=== PATIENT | male | born 1995 | race Caucasian/White ===

== ENCOUNTER 2022-01-04 14:53 | Emergency (ER) | payer MEDICAID, OTHER ==
[~2022-01-04] VITALS: Ht 170.2 cm; Wt 100.0 kg
[2022-01-04 15:09] VITALS: BP 142/85
[2022-01-04] MEDS ORDERED: BO1 TP (17:48)
== END 2022-01-04 17:54 | disposition home or self-care (01) ==
LOC: ER 14:53
DX: S31.21XA Laceration without foreign body of penis, initial encounter (principal); X58.XXXA Exposure to other specified factors, initial encounter; Y93.89 Activity, other specified; Y92.89 Other specified places as the place of occurrence of the external cause; Y99.8 Other external cause status
CPT/HCPCS: 99282

== ENCOUNTER 2023-12-11 10:19 | Emergency (ER) | payer MEDICAID ==
[~2023-12-11] VITALS: Ht 172.7 cm; Wt 77.0 kg
[~2023-12-11 10:19] MED LIST: BO1 TP
[2023-12-11 10:21] VITALS: O2SAT 96
[2023-12-11] MEDS: IBUPROFEN 800MG TABLET PO ONE (11:36)
[2023-12-11] MEDS ORDERED: IBUP-2030 MT (11:50)
[2023-12-11 11:53] VITALS: BP 144/75; PULSE 77; RESP 16; TEMP 98.1
== END 2023-12-11 11:55 | disposition home or self-care (01) ==
LOC: ER 10:26
DX: S89.92XA Unspecified injury of left lower leg, initial encounter (principal); S89.91XA Unspecified injury of right lower leg, initial encounter; F12.10 Cannabis abuse, uncomplicated; Z90.49 Acquired absence of other specified parts of digestive tract; V49.49XA Driver injured in collision with other motor vehicles in traffic accident, initial encounter; Y93.89 Activity, other specified; Y92.89 Other specified places as the place of occurrence of the external cause; Y99.8 Other external cause status
CPT/HCPCS: 73562; 99283

== ENCOUNTER 2024-06-18 12:26 | Emergency (ER) | payer MEDICAID ==
[~2024-06-18] VITALS: Ht 170.2 cm; Wt 104.0 kg
[~2024-06-18 12:26] MED LIST changes: +IBUP-2030 MT
[2024-06-18 12:46] VITALS: BP 122/69; PULSE 98; RESP 16; TEMP 98.2; O2SAT 99
[2024-06-18] MEDS ORDERED: TETANUS, DIPHTHERIA, PERTUSSIS VAC/PF 0.5ML (>10YR OLD) IM ONE (13:45)
[2024-06-18] MEDS ORDERED: LIDOCAINE HCL/PF 1% 10 MG/ML 5ML VIAL INFIL ONE (13:45)
[2024-06-18] MEDS ORDERED: AMOX1TAB16 MT (16:10)
[2024-06-18] MEDS ORDERED: BACITRACIN ZINC OINT UDPKT TOP ONE (16:15)
== END 2024-06-18 18:05 | disposition home or self-care (01) ==
LOC: ER 12:34
DX: S61.411A Laceration without foreign body of right hand, initial encounter (principal); F12.10 Cannabis abuse, uncomplicated; Z90.49 Acquired absence of other specified parts of digestive tract; Y04.0XXA Assault by unarmed brawl or fight, initial encounter; Y93.89 Activity, other specified; Y92.89 Other specified places as the place of occurrence of the external cause; Y99.8 Other external cause status
CPT/HCPCS: 12002; 73130; 99283